=== PATIENT | female | born 1985 | race Two or more races ===

== ENCOUNTER 2023-08-31 09:14 | Outpatient (CLI) | payer OTHER ==
[~2023-08-31 09:14] MED LIST: PREDNISONE20 MG PO; SINGULAIR4 MG PO; XOPENEX0.63 MG/3 IH
== END 2023-08-31 09:38 | disposition home or self-care (01) ==
LOC: PRENATAL 09:14
PROVIDERS: ATTEND Obstetrics & Gynecology Maternal & Fetal Medicine
DX: O35.3XX0 Maternal care for (suspected) damage to fetus from viral disease in mother, not applicable or unspecified (principal); O44.00 Complete placenta previa NOS or without hemorrhage, unspecified trimester; Z3A.20 20 weeks gestation of pregnancy

== ENCOUNTER 2023-10-14 09:19 | Outpatient (CLI) | payer OTHER | END 2023-10-14 09:22 | disposition home or self-care (01) | LOC: PRENATAL 09:19 | PROVIDERS: ATTEND Obstetrics & Gynecology Maternal & Fetal Medicine | DX: O26.849 Uterine size-date discrepancy, unspecified trimester (principal); Z3A.26 26 weeks gestation of pregnancy ==

== ENCOUNTER 2023-12-02 11:43 | Outpatient (CLI) | payer OTHER | END 2023-12-02 11:45 | disposition home or self-care (01) | LOC: PRENATAL 11:43 | PROVIDERS: ATTEND Obstetrics & Gynecology Maternal & Fetal Medicine | DX: O26.849 Uterine size-date discrepancy, unspecified trimester (principal); O36.8199 Decreased fetal movements, unspecified trimester, other fetus; Z3A.33 33 weeks gestation of pregnancy ==